=== PATIENT | male | born 1985 | race African-American/Black ===

== ENCOUNTER 2016-12-08 15:40 | Emergency (ER) | payer OTHER ==
[~2016-12-08] VITALS: Ht 203.2 cm; Wt 136.1 kg
[2016-12-08 15:44] VITALS: BP 182/117
[2016-12-08] MEDS ORDERED: IBUPROFEN 600600 M1 PO (15:48)
[2016-12-08] MEDS ORDERED: PENICILLIN V P500 MG PO (15:48)
== END 2016-12-08 16:17 | disposition home or self-care (01) ==
LOC: ER 15:40
DX: K04.7 Periapical abscess without sinus (principal)